=== PATIENT | female | born 1985 | race Caucasian/White ===

== ENCOUNTER 2023-07-06 17:07 | Emergency (ER) | payer MEDICAID ==
[~2023-07-06] VITALS: Ht 167.6 cm; Wt 90.7 kg
[2023-07-06 17:16] VITALS: BP_SYST 143; PULSE 89; RESP 18; TEMP 98.3; O2SAT 100
[2023-07-06 20:30] VITALS: BP_SYST 143; PULSE 89; RESP 18; TEMP 98.3; O2SAT 100
[2023-07-06] MEDS ORDERED: HYDR-3917 PO (20:31)
== END 2023-07-06 20:30 | disposition home or self-care (01) ==
LOC: SED 17:07
DX: N83.209 Unspecified ovarian cyst, unspecified side (principal); R10.2 Pelvic and perineal pain; Z88.0 Allergy status to penicillin; Z79.899 Other long term (current) drug therapy
CPT/HCPCS: 76856-TC; 81025; 99284